=== PATIENT | female | born 1960 | race Caucasian/White ===

== ENCOUNTER 2022-07-23 09:51 | Emergency (ER) | payer OTHER, SELFPAY ==
[2022-07-23 10:30] VITALS: BP 157/81; PULSE 89; RESP 18; TEMP 37.3; O2SAT 97
--- NOTE | 2022-07-23 11:18 | ED.URI ---
HPI - URI/Sore Throat General Chief Complaint: Upper Respiratory Infection Stated Complaint: Sinus Congestion Time Seen by Provider: 07/23/22 11:18 Source: patient, RN notes reviewed and old records reviewed Mode of arrival: ambulatory Limitations: no limitations History of Present Illness HPI Narrative: 61-year-old female who presents to [facility] with complaints initially of sore throat which started last Wednesday which has resolved but continues to have sinus pressure with cough and post nasal drainage. Patient reports that she took home COVID test on Wednesday and it was negative, she has not had covid vaccinations or flu shot.Patient denies any shortness of breath. MD elicited complaint: cough, rhinorrhea, nasal congestion and sinus pain Pertinent past history: other (tobacco use) Pain scale (0-10): 6 Treatments prior to arrival: ibuprofen and other (sinus and cough medication) Related Data Home Medications Medication Instructions Recorded Confirmed bupropion HCl 150 mg 24 hr tablet, 150 mg PO DAILY 07/23/22 07/23/22 extended release Allergies Allergy/AdvReac Type Severity Reaction Status Date / Time No Known Allergies Allergy Verified 07/23/22 10:36 Review of Systems Review of Systems: CONSTITUTIONAL: Reports malaise, chills, sweats, or fever. EYES: Denies visual changes, redness, or discharge. ENT: Reports rhinorrhea, congestion, sinus pain, no otalgia resolved sore throat. CARDIOVASCULAR: Denies chest pain, palpitations, or edema. RESPIRATORY: Reports cough.? Denies dyspnea. GASTROINTESTINAL: Denies abdominal pain, nausea, vomiting, diarrhea SKIN: Denies rash or itching. MUSCULOSKELETAL: Denies myalgia. NEUROLOGIC:Reports frontal headache. All systems reviewed & are unremarkable except as noted in HPI and below PMFSH Past Medical History Medical History (Updated 08/02/22 @ 19:44 by Sheyla Scott NP) Depression Social History Social History (Updated 08/02/22 @ 19:44 by Sheyla Scott NP) Smoking packs per day: 0.5 Smoking cigarettes per day: 10.0 Smoking status: Current every day smoker Alcohol intake: unknown Substance use type: does not use Gender identity (if verbalized by the patient): Female Comments At time of signature, agree with nursing past medical, surgical, social and family history. There is no relevant family history pertinent to the presenting complaint Exam Narrative: GENERAL: Well-appearing, well-nourished, and in no acute distress. HEAD: Normocephalic EYES: PERRLA, conjunctivae clear ENT: Nares clear, turbinates edematous and erythematous, clear discharge. Mucous membranes moist.Headache with sinus pressure, TM pearly cook with dull light reflex bilaterally; no tragal tenderness. Oropharynx erythematous without lesions. Tonsils not enlarged and without exudate, no drooling, no hoarseness, no trismus, uvula midline. NECK: Supple. No lymphadenopathy CHEST: Clear to auscultation, breath sounds equal. No wheezing, rhonchi, rales, or stridor. No respiratory distress, speaks in full sentences.cough SAO2 97% on room air HEART: Regular rate and rhythm. No murmur heard. SKIN: Warm, dry, no rash. NEURO: Alert and oriented x3. PSYCH: Normal mood and affect Course Course Emergency Course: Patient is aware of diagnosis, understands and agrees to treatment plan.? Anticipatory guidance given.? Patient agrees to follow-up as directed and is aware of reasons to seek care at the emergency department. Portions of this record may have been created with voice recognition software Level of Care: Express Care Visit Vital Signs Vital signs: Vital Signs Temperature 37.3 C 07/23/22 10:30 Pulse Rate 89 07/23/22 10:30 Respiratory Rate 18 07/23/22 10:30 Blood Pressure 157/81 H 07/23/22 10:30 Pulse Oximetry 97 07/23/22 10:30 Oxygen Delivery Room Air 07/23/22 10:30 Temperature 37.3 C 07/23/22 10:30 Pulse Rate 89 12
== END 2022-07-23 11:39 | disposition home or self-care (01) ==
PROVIDERS: Emergency Provider Registered Nurse; PCP Internal Medicine
DX: J32.9 Chronic sinusitis, unspecified (principal); F32.A Depression, unspecified
CPT/HCPCS: 99213; G0463